=== PATIENT | male | born 1985 | race African-American/Black ===

== ENCOUNTER → 2017-02-11 | Outpatient (CLI) | payer BC ==
--- NOTE | ~2017-02-11 | CR63 ---
[facility] A Service of [facility] & [facility] / [facility] RADIOLOGY TEXT RESULTS PATIENT: RYAN MTZ LOCATION: [facility] : [birth year] UNIT #: [id number] AGE: [address]: Dee Garcia MD SEX: M ORDER DR: [id number] [facility] [address] [place], [place] [address] [id number] O MR#: [id number] Acc #: [id number] NAME: RYAN MTZ : 1985 SEX: M STUDY DATE/TIME: 02/11/2017 16:16 UNIT: [facility] ROOM: STUDY DESCRIPTION: CR Chest 2 View Attending Physician: Dee Garcia M.D. Referring Physician: Dee Garcia M.D. Ordering Physician: Dee Garcia M.D. Primary Care Physician: Dee Garcia M.D. MEDICAL IMAGING REPORT This report is preliminary unless electronic signature is present EXAM Chest, PA and lateral; 02/11/2017. HISTORY Chest pain for 2 weeks, no known injury. FINDINGS PA and lateral examination of the chest upright shows a good expansion of the parenchyma with a normal distribution of the pulmonary vascularity. There is no indication of congestion, effusion, infiltrate, tumor, or nodular density. The pleural reflections and diaphragmatic contours are normal. The cardiac silhouette and mediastinal anatomy is within normal limits. IMPRESSION Normal chest. Dictated by... Main Auguste M.D. THIS IS AN ELECTRONICALLY VERIFIED REPORT Main Auguste M.D. at 02/12/2017 2:16 PM MAGDY/suly TD: 02/12/2017 01:18 JOB #: [id number] MEDICAL IMAGING REPORT Page 1 of 1 COPY
== END | disposition home or self-care (01) ==
LOC: CRAD 15:58
DX: R07.9 Chest pain, unspecified (principal)
CPT/HCPCS: 71020